=== PATIENT | male | born 1985 | race American Indian/Alaskan Native ===

== ENCOUNTER 2017-08-17 05:51 | Emergency (ER) | payer SELFPAY ==
[2017-08-17] MEDS ORDERED: DUONEB *Not for PRN Use IH ONE ×2 (06:06→06:50)
[2017-08-17] MEDS ORDERED: TYLENOL #3 PO ONE (06:50)
[2017-08-17] MEDS ORDERED: DELTASONE PO ONE (06:50)
--- NOTE | 2017-08-17 06:55 | Emergency Department Report ---
Chief Complaint: Adult Asthma Stated Complaint: ASTHMA Time Seen by Provider: 08/17/17 06:44 - HPI History of Present Illness: 32-year-old male past medical history asthma presents with complaint of asthma exacerbation over the last 2 days. Patient has been persistently wheezing. Patient is currently speaking in full sentences no audible wheezing or stridor upon initial exam. Patient also incidentally stating that he has a fractured tooth in his right rear molar region. Complaining of pain there. States he had some fevers yesterday but no fevers now. Awake alert and oriented 3 speaking in full sentences and accompanied by at bedside. Patient states that he ran out of his albuterol inhaler medicine. - ROS Review of Systems: 2 days of intermittent wheezing - Exam Vital Signs: Vital Signs 08/17/17 08/17/17 08/17/17 06:01 06:10 06:21 Temperature 98.1 F Pulse Rate 87 Pulse Rate [ 82 88 Anterior Throughout] Respiratory 20 Rate Respiratory 22 20 Rate [Anterior Throughout] Blood Pressure 122/91 O2 Sat by Pulse 96 Oximetry Physical Exam: Audible rhonchi/wheezing left lung field. Visible dental fracture around tooth #32 MSE screening note: Focused history and physical exam performed. Due to findings the following was ordered: Screening Assessment/Plan/Differential Dx: Asthma exacerbation, dental pain 1- This initial assessment/diagnostic orders/clinical plan/ treatment(s) is/are subject to change based on pt's health status, clinical progression and re- assessment by fellow clinical providers in the ED. Further treatment and workup at subsequent clinical provers discretion. Patient/guardians urged not to elope from ED as their condition may be serious if not clinically assessed and managed. 2-analgesia, x-ray, DuoNeb, prednisone ED Disposition for MSE Condition: Stable Referrals: PRIMARY CARE, [Primary Care Provider] - 3-5 Days
--- NOTE | 2017-08-17 07:15 | XRay Report ---
FINAL REPORT EXAM: XR CHEST ROUTINE 2V HISTORY: shortness of breath, wheezing TECHNIQUE: PA and lateral chest radiographs PRIORS: None. FINDINGS: No mediastinal shift. Cardiac silhouette is not enlarged. No pneumothorax, effusion, or focal pulmonary opacity. No acute skeletal finding. IMPRESSION: No focal pulmonary opacity.
--- NOTE | 2017-08-17 07:30 | Emergency Department Report ---
ED Asthma HPI - General Chief Complaint: Adult Asthma Stated Complaint: ASTHMA Time Seen by Provider: 08/17/17 06:44 Source: patient Mode of arrival: Ambulatory Limitations: No Limitations - History of Present Illness Initial Comments: This is a 32-year-old male nontoxic, well nourished in appearance, no acute signs of distress presents to the ED with c/o of toothache, shortness of breath and wheezing 2 days. Patient has history of asthma and has been L side for the past 2 days and pollen count has been high and develop wheezing. Patient denies any facial swelling. Patient denies any cough or any sick contacts. Patient denies any recent travels, long car, recent hospital stays. Patient denies any calf pain or calf tenderness. Patient denies any chest pain, short of breath, fever, chills, nausea, vomiting, hemoptysis, numbness, tingling, headache or stiff neck. Patient denies any drug allergies or significant past medical history besides asthma. MD Complaint: shortness of breath, wheezing -: days(s) (2) Asthma History: childhood onset Severity: mild Context: none known Associated Symptoms: none - Related Data Current Asthma Therapy: none Previous Rx's Medication Instructions Recorded Last Taken Type Albuterol Sulfate [Ventolin HFA] 2 puff IH Q4H PRN #1 hfa.aer.ad 09/09/13 Unknown Rx Azithromycin [Zithromax Z-MARA] 250 mg PO DAILY #6 tablet 09/09/13 Unknown Rx predniSONE [Deltasone] 50 mg PO QDAY #5 tab 09/09/13 Unknown Rx ALBUTEROL Inhaler [ProAir HFA 2 puff IH QID PRN #1 inhalation 08/17/17 Unknown Rx Inhaler] Amoxicillin/K Clav Tab [Augmentin 1 tab PO Q12HR #20 tab 08/17/17 Unknown Rx 875 mg] Ibuprofen [Motrin] 600 mg PO Q8H PRN #30 tablet 08/17/17 Unknown Rx Prednisone [predniSONE 10 mg 10 mg PO .TAPER #1 tab.ds.pk 08/17/17 Unknown Rx (6-Day Pack, 21 Tabs)] Allergies Allergy/AdvReac Type Severity Reaction Status Date / Time No Known Allergies Allergy Verified 09/09/13 01:06 ED Review of Systems ROS: Stated complaint: ASTHMA Other details as noted in HPI Constitutional: denies: chills, fever Eyes: denies: eye pain, eye discharge, vision change ENT: dental pain. denies: ear pain, throat pain Respiratory: shortness of breath, wheezing. denies: cough Cardiovascular: denies: chest pain, palpitations Endocrine: no symptoms reported Gastrointestinal: denies: abdominal pain, nausea, diarrhea Genitourinary: denies: urgency, dysuria Musculoskeletal: denies: back pain, joint swelling, arthralgia Skin: denies: rash, lesions Neurological: denies: headache, weakness, paresthesias Psychiatric: denies: anxiety, depression Hematological/Lymphatic: denies: easy bleeding, easy bruising ED Past Medical Hx - Past Medical History Previous Medical History?: Yes Hx Asthma: Yes - Surgical History Past Surgical History?: No - Social History Smoking Status: Current Every Day Smoker Substance Use Type: Alcohol, Marijuana - Medications Home Medications: Home Medications Medication Instructions Recorded Confirmed Last Taken Type Albuterol Sulfate [Ventolin HFA] 2 puff IH Q4H PRN #1 hfa.aer.ad 09/09/13 Unknown Rx Azithromycin [Zithromax Z-MARA] 250 mg PO DAILY #6 tablet 09/09/13 Unknown Rx predniSONE [Deltasone] 50 mg PO QDAY #5 tab 09/09/13 Unknown Rx ALBUTEROL Inhaler [ProAir HFA 2 puff IH QID PRN #1 inhalation 08/17/17 Unknown Rx Inhaler] Amoxicillin/K Clav Tab [Augmentin 1 tab PO Q12HR #20 tab 08/17/17 Unknown Rx 875 mg] Ibuprofen [Motrin] 600 mg PO Q8H PRN #30 tablet 08/17/17 Unknown Rx Prednisone [predniSONE 10 mg 10 mg PO .TAPER #1 tab.ds.pk 08/17/17 Unknown Rx (6-Day Pack, 21 Tabs)] ED Physical Exam - General Limitations: No Limitations General appearance: alert, in no apparent distress - Head Head exam: Present: atraumatic, normocephalic - Eye Eye exam: Present: normal appearance Pupils: Present: normal accommodation - ENT ENT exam: Present: mucous membranes moist - Expanded ENT Exam Expanded Ear exam: Present: normal external inspection Mouth exam: Present: normal external inspection, tongue normal. Absent: drooling, trismus, muffled voice, tongue elevation, laceration Teeth exam: Present: dental caries, fractured tooth #, dental tenderness #, gingival enlargement, other (no facial swelling or abscess notesd. ) Throat exam: Positive: normal inspection, other (Uvula midline.). Negative: tonsillar erythema, tonsillomegaly, tonsillar exudate, R peritonsillar mass, L peritonsillar mass - Neck Neck exam: Present: normal inspection, full ROM. Absent: tenderness, meningismus, lymphadenopathy - Respiratory Respiratory exam: Present: normal lung sounds bilaterally, wheezes (slight bilateral upper and lower lobes). Absent: respiratory distress, rales, rhonchi , stridor, chest wall tenderness, accessory muscle use, decreased breath sounds , prolonged expiratory - Cardiovascular Cardiovascular Exam: Present: regular rate, normal rhythm, normal heart sounds. Absent: bradycardia, tachycardia, irregular rhythm, systolic murmur, diastolic murmur, rubs, gallop - GI/Abdominal GI/Abdominal exam: Present: soft, normal bowel sounds - Rectal Rectal exam: Present: deferred - Extremities Exam Extremities exam: Present: normal inspection, full ROM, normal capillary refill - Back Exam Back exam: Present: normal inspection, full ROM - Neurological Exam Neurological exam: Present: alert, oriented X3, normal gait - Psychiatric Psychiatric exam: Present: normal affect, normal mood - Skin Skin exam: Present: warm, dry, intact, normal color. Absent: rash ED Course Vital Signs 08/17/17 08/17/17 08/17/17 06:01 06:10 06:21 Temperature 98.1 F Pulse Rate 87 Pulse Rate [ 82 88 Anterior Throughout] Respiratory 20 Rate Respiratory 22 20 Rate [Anterior Throughout] Blood Pressure 122/91 O2 Sat by Pulse 96 Oximetry 08/17/17 07:16 Temperature Pulse Rate Pulse Rate [ 92 H Anterior Throughout] Respiratory Rate Respiratory 16 Rate [Anterior Throughout] Blood Pressure O2 Sat by Pulse Oximetry - Reevaluation(s) Reevaluation #2: 08/17/17 07:28 Patient is speaking in full sentences with no signs of distress noted. ED Medical Decision Making - Medical Decision Making This is a 32-year-old male that presents with asthma exacerbation and dental caries with gingivitis. Patient is stable and was examined by me. Chest x-ray has been obtained and dictated by the radiologist within normal limits. Patient is notified of the x-ray report with no questions noted by the patient. Patient did receive DuoNeb and steroids in the ED which patient the symptoms has resolved and subsided. Posttreatment and there is no wheezing upon auscultation. Patient is discharged with albuterol and prednisone and Augmentin. Patient was referred to Follow-up with a primary care doctor in 3-5 days or if symptoms worsen and continue return to emergency room as soon as possible. At time of discharge, the patient does not seem toxic or ill in appearance. No acute signs of distress noted. Patient agrees to discharge treatment plan of care. No further questions noted by the patient. This chart is dictated with using [employer] Critical care attestation.: If time is entered above; I have spent that time in minutes in the direct care of this critically ill patient, excluding procedure time. ED Disposition Clinical Impression: Dental caries, Gingivitis Asthma exacerbation Qualifiers: Asthma severity: mild Asthma persistence: intermittent Qualified Code(s): J45.21 - Mild intermittent asthma with (acute) exacerbation Disposition: TO HOME OR SELFCARE Is pt being admited?: No Does the pt Need Aspirin: No Condition: Stable Instructions: Asthma (ED), Dental Caries (ED), Gingivitis (ED) Additional Instructions: Follow-up with a primary care/dentist doctor in 3-5 days or if symptoms worsen and continue return to emergency room as soon as possible. Prescriptions: ALBUTEROL Inhaler [ProAir HFA Inhaler] 2 puff IH QID PRN #1 inhalation PRN Reason: Shortness Of Breath Amoxicillin/K Clav Tab [Augmentin 875 mg] 1 tab PO Q12HR #20 tab Ibuprofen [Motrin] 600 mg PO Q8H PRN #30 tablet PRN Reason: Pain Prednisone [predniSONE 10 mg (6-Day Pack, 21 Tabs)] 10 mg PO .TAPER #1 tab.ds.pk Referrals: PRIMARY CARE, [Primary Care Provider] - 3-5 Days JOSEPH ZAPATA MD [Staff Physician] - 3-5 Days [facility] [Outside] - 3-5 Days Forms: Work/School Release Form(ED)
[2017-08-17 07:45] VITALS: BP 124/77
== END 2017-08-17 07:47 | disposition home or self-care (01) ==
LOC: ED 05:51
DX: K02.9 Dental caries, unspecified (principal); K05.10 Chronic gingivitis, plaque induced; J45.21 Mild intermittent asthma with (acute) exacerbation; F17.200 Nicotine dependence, unspecified, uncomplicated; F12.90 Cannabis use, unspecified, uncomplicated
CPT/HCPCS: 71046; 94640; 99283; J7512

== ENCOUNTER 2018-08-10 02:37 | Emergency (ER) | payer OTHER ==
[2018-08-10] MEDS ORDERED: PROVENTIL IH ONE ×2 (03:06→04:52)
[2018-08-10] MEDS ORDERED: ATROVENT IH ONE (03:06)
[2018-08-10] MEDS ORDERED: SOLU-Medrol IV ONE (03:26)
[2018-08-10] MEDS ORDERED: MAGNESIUM SULFATE 2GM/50ML 2 GM/50 ML BAG IV ONE (03:26)
--- NOTE | 2018-08-10 04:22 | Emergency Department Report ---
<CHINA ORNELAS - Last Filed: 08/11/18 06:00> ED Asthma HPI - General Chief Complaint: Dyspnea/Respdistress Stated Complaint: ASTHMA Time Seen by Provider: 08/10/18 03:25 Source: patient Mode of arrival: Ambulatory Limitations: No Limitations - History of Present Illness Initial Comments: 33-year-old male with a past medical history of asthma without previous intubations presents to the hospital for wheezing and cough 2 days. Cough productive yellow sputum. Patient using an albuterol inhaler with out improvement. He does not have a nebulizer machine and is not currently on steroids. EMS came to the home yesterday and patient felt better after neb and elected not to come to the hospital. He is taking [id number] TheraFlu and Mucinex with no improvement. Patient also complains of intermittent hemorrhoid with intermittent bright red blood when he has a hard large stool. He denies any rectal pain or bleeding now. He states that the hemorrhoid only comes out with a bowel movement and then goes back in. PMD: None - Related Data Previous Rx's Medication Instructions Recorded Last Taken Type predniSONE [Deltasone] 50 mg PO QDAY #5 tab 09/09/13 Unknown Rx Ibuprofen [Motrin] 600 mg PO Q8H PRN #30 tablet 08/17/17 Unknown Rx ALBUTEROL Inhaler (OR & NICU) 2 puff IH QID PRN #1 inhalation 08/10/18 Unknown Rx [ProAir HFA Inhaler] ALBUTEROL NEB's [Proventil 0.083% 2.5 mg IH TID PRN #30 neb 08/10/18 Unknown Rx NEBS] Azithromycin [Zithromax Z-MARA] 250 mg PO DAILY #6 tablet 08/10/18 Unknown Rx Nebulizer Accessories [Sootheneb 1 each MC PRN #1 each 08/10/18 Unknown Rx [id number] Adult Mask] Nebulizer and Compressor 1 each MC PRN #1 each 08/10/18 Unknown Rx [Sootheneb Compressor Nebulizer] Phenylephrine HCl/Howard Butter 1 each RC 4XD PRN #14 supp.rect 08/10/18 Unknown Rx [Preparation H Suppository] Prednisone [predniSONE 10 mg 10 mg PO .TAPER #1 tab.ds.pk 08/10/18 Unknown Rx (6-Day Pack, 21 Tabs)] Allergies Allergy/AdvReac Type Severity Reaction Status Date / Time No Known Allergies Allergy Verified 09/09/13 01:06 ED Review of Systems Comment: All other systems reviewed and negative ED Past Medical Hx - Past Medical History Previous Medical History?: Yes Hx Asthma: Yes - Surgical History Past Surgical History?: No - Social History Smoking Status: Current Every Day Smoker Substance Use Type: None, Marijuana - Medications Home Medications: Home Medications Medication Instructions Recorded Confirmed Last Taken Type predniSONE [Deltasone] 50 mg PO QDAY #5 tab 09/09/13 Unknown Rx Ibuprofen [Motrin] 600 mg PO Q8H PRN #30 tablet 08/17/17 Unknown Rx ALBUTEROL Inhaler (OR & NICU) 2 puff IH QID PRN #1 inhalation 08/10/18 Unknown Rx [ProAir HFA Inhaler] ALBUTEROL NEB's [Proventil 0.083% 2.5 mg IH TID PRN #30 neb 08/10/18 Unknown Rx NEBS] Azithromycin [Zithromax Z-MARA] 250 mg PO DAILY #6 tablet 08/10/18 Unknown Rx Nebulizer Accessories [Sootheneb 1 each MC PRN #1 each 08/10/18 Unknown Rx [id number] Adult Mask] Nebulizer and Compressor 1 each MC PRN #1 each 08/10/18 Unknown Rx [Sootheneb Compressor Nebulizer] Phenylephrine HCl/Howard Butter 1 each RC 4XD PRN #14 supp.rect 08/10/18 Unknown Rx [Preparation H Suppository] Prednisone [predniSONE 10 mg 10 mg PO .TAPER #1 tab.ds.pk 08/10/18 Unknown Rx (6-Day Pack, 21 Tabs)] ED Physical Exam - General Limitations: No Limitations - Other Other exam information: General: No limitations, patient is alert in no acute distress Head exam: Atraumatic, normocephalic Eyes exam: Normal appearance ENT: Moist mucous membrane, normal oropharynx Neck exam: Normal inspection, full range of motion, no meningismus nontender Respiratory exam: Bilateral wheezing, no crackles. Able speak in complete sentences with minimal accessory muscle use Cardiovascular: Tachycardic regular rhythm Abdomen: Soft, nondistended, and nontender, with normal bowel sounds, no rebound, or guarding Rectal: no current external hemorrhoid. Extremity: Full range of motion normal inspection no deformity, no calf tenderness or edema Back: Normal Inspection, full range of motion, no tenderness Neurologic: Alert, oriented x3, cranial nerves intact, no motor or sensory deficit Psychiatric: normal affect, normal mood Skin: Warm, dry, intact ED Course - Reevaluation(s) Reevaluation #1: 08/10/18 06:02 At this time patient continues to improve. Wheezing has decreased. Patient now tachycardic in the 120s after finishing second round of albuterol 10 mg. He also received IV magnesium and IV Solu-Medrol. Patient's room air saturation at rest is 92%. Discussed case with respiratory therapist and requested that they reevaluate patient has 6:30-6:45 AM. Patient will need to walk without significant wheezing, shortness of breath, or significant oxygen desaturation to go home. Patient has been prepped for discharge. Case will be discussed with oncoming provider Dr. Ailyn LOWERY Medical Decision Making - Radiology Data Radiology results: report reviewed Chest x-ray: No acute findings - Medical Decision Making Patient's symptoms improving with treatment. Plan to discharged as long as patient does not desat or have rebound wheezing. - Differential Diagnosis pneumonia, bronchitis, asthma, pneumothorax Critical Care Time: No ED Disposition Clinical Impression: Acute asthmatic bronchitis, Hemorrhoid Disposition: ELOPED Is pt being admited?: No Does the pt Need Aspirin: No Condition: Stable Instructions: Asthma (ED), Hemorrhoids (ED), Acute Bronchitis (ED) Additional Instructions: Take the medication as prescribed. Follow up with your doctor or the clinic/doctor provided. Return if symptoms worsen as indicated by your discharge instructions Prescriptions: Prednisone [predniSONE 10 mg (6-Day Pack, 21 Tabs)] 10 mg PO .TAPER #1 tab.ds.pk Phenylephrine HCl/Howard Butter [Preparation H Suppository] 1 each RC 4XD PRN #14 supp.rect PRN Reason: Hemorrhoids ALBUTEROL Inhaler (OR & NICU) [ProAir HFA Inhaler] 2 puff IH QID PRN #1 inhalation PRN Reason: Shortness Of Breath ALBUTEROL NEB's [Proventil 0.083% NEBS] 2.5 mg IH TID PRN #30 neb PRN Reason: Wheezing Nebulizer and Compressor [Sootheneb Compressor Nebulizer] 1 each MC PRN #1 each Nebulizer Accessories [Sootheneb [id number] Adult Mask] 1 each MC PRN #1 each Azithromycin [Zithromax Z-MARA] 250 mg PO DAILY #6 tablet Referrals: WENDY SOSA MD [Primary Care Provider] - 3-5 Days <AILYN PEREAJUAN F Daniel - Last Filed: 08/16/18 02:00> ED Review of Systems ROS: Stated complaint: ASTHMA Other details as noted in HPI ED Course Vital Signs 08/10/18 08/10/18 08/10/18 02:43 02:53 03:01 Temperature 99.0 F Pulse Rate 110 H 107 H 106 H Pulse Rate [ Anterior Bilateral Throughout] Respiratory 18 16 22 Rate Respiratory Rate [Anterior Bilateral Throughout] Blood Pressure 127/86 127/87 O2 Sat by Pulse 92 94 Oximetry 08/10/18 08/10/18 08/10/18 03:15 04:01 05:01 Temperature Pulse Rate 126 H 121 H Pulse Rate [ 92 H Anterior Bilateral Throughout] Respiratory 21 31 H Rate Respiratory 24 Rate [Anterior Bilateral Throughout] Blood Pressure 129/80 125/86 O2 Sat by Pulse 92 93 Oximetry 08/10/18 08/10/18 08/10/18 05:38 05:41 06:00 Temperature 99.0 F Pulse Rate 121 H Pulse Rate [ 136 H Anterior Bilateral Throughout] Respiratory 24 Rate Respiratory 20 Rate [Anterior Bilateral Throughout] Blood Pressure 119/82 O2 Sat by Pulse 93 Oximetry 08/10/18 08/10/18 06:34 07:00 Temperature Pulse Rate 126 H 111 H Pulse Rate [ Anterior Bilateral Throughout] Respiratory 27 H Rate Respiratory Rate [Anterior Bilateral Throughout] Blood Pressure 119/82 120/81 O2 Sat by Pulse 91 91 Oximetry - Reevaluation(s) Reevaluation #2: Patient was signed out to me by the previous ER doctor, Dr. Ornelas. Dr. Ornelas discussed fully with me the patient's case and disposition. The patient's discharge has already been prepared if the patient was able to maintain sat and ambulatory sat check. Respiratory reported to me that the patient dropped to 86 while ambulating and never went above baseline of 92. My plan is to admit the patient to the hospitalist service for further evaluation and treatment, I went to discuss the plan of care and admission with the patient and the patient was not in the room. It appears that the patient has eloped from the ER. Patient did not receive any of his prescriptions or stay for final disposition. 08/10/18 07:20 Critical care attestation.: If time is entered above; I have spent that time in minutes in the direct care of this critically ill patient, excluding procedure time.
--- NOTE | 2018-08-10 04:36 | XRay Report ---
PROCEDURE: XR CHEST 1V AP TECHNIQUE: Chest radiograph single view. HISTORY: cough, wheeze, asthma COMPARISONS: August 17, 2017 . FINDINGS: Heart: Normal. Mediastinum/Vessels: Normal. Lungs/Pleural space: Normal. Bony thorax: No acute osseous abnormality. Life support devices: None. IMPRESSION: No acute cardiopulmonary abnormality. This document is electronically signed by Jens Clement MD., Aug 10 2018 04:35:04 AM ET
[2018-08-10 07:57] VITALS: BP 120/81
== END 2018-08-10 11:44 | disposition left against medical advice (07) ==
LOC: ED 02:37
DX: J45.909 Unspecified asthma, uncomplicated (principal); K64.9 Unspecified hemorrhoids; F17.200 Nicotine dependence, unspecified, uncomplicated; F12.10 Cannabis abuse, uncomplicated
CPT/HCPCS: 71045; 94644; 96365; 96375; 99284; J2930; J3475

== ENCOUNTER 2019-03-17 13:05 | Emergency (ER) | payer OTHER | END 2019-03-17 14:00 | disposition left against medical advice (07) | LOC: ED 13:05 | DX: J45.909 Unspecified asthma, uncomplicated (principal); Z53.21 Procedure and treatment not carried out due to patient leaving prior to being seen by health care provider ==